=== PATIENT | female | born 1960 | race Caucasian/White ===

== ENCOUNTER 2020-07-22 11:04 | Day surgery (SDCO) | payer MEDICARE, OTHER ==
[2020-07-22 12:22] LABS: BASOPHIL 0.6 % (0-2); EOSINOPHIL 0.7 % (0-5); HCT 28.4 % (37.0-47.0); HGB 8.7 g/dl (12.5-16.0); LYMPHOCYTE 6.6 % (15-48); MCH 28.2 pg (25.0-31.0); MCHC 30.6 g/dL (32.0-36.0); MCV 92.2 fL (78.0-100.0); MONOCYTE 9.4 % (0-12); MPV 10.4 fL (6.0-9.5); NEUTROPHIL 82.5 % (41-80); NRBC 0; PLT 297 K/uL (150-400); RBC 3.08 M/uL (4.20-5.40); RDW 12.7 % (11.5-14.0); WBC 8.9 K/uL (4.0-10.5)
[2020-07-22 12:36] LABS: CORONAVIRUS 2019 SARS-COV-2 NEGATIVE (NEGATIVE); INFLUENZA A NAA NEGATIVE (NEGATIVE)
[2020-07-22 12:40] LABS: BILIRUBIN NEGATIVE (NEGATIVE); BLOOD NEGATIVE Ery/uL (NEGATIVE); CLARITY CLEAR (CLEAR); COLOR YELLOW (YELLOW); GLUCOSE (U) NORMAL (NORMAL); LEUKOCYTES NEGATIVE Leu/uL (NEGATIVE); NITRITE NEGATIVE (NEGATIVE); PROTEIN NEGATIVE (NEGATIVE); SPECIFIC GRAVITY 1.025 (1.001-1.030)
[2020-07-22 12:42] LABS: ALBUMIN 2.5 g/dL (3.4-5.0); BILIRUBIN - TOTAL 0.4 mg/dL (0.2-1.0); CREATININE 0.47 mg/dL (0.51-0.95); GLOBULIN (CALCULATION) 3.7 g/dL; TOTAL PROTEIN 6.2 g/dL (6.4-8.2)
[2020-07-22 12:47] LABS: LACTIC ACID 1.1 mmol/L (0.4-1.9)
[2020-07-22] MEDS ORDERED: HYDROCORTISONE30 G5 TOP (13:10)
[2020-07-22] MEDS ORDERED: DIASTAT2.5 MG PR (16:42)
[2020-07-22] MEDS ORDERED: LAMICTAL100 MG PO (16:42)
[2020-07-22] MEDS ORDERED: AMBIEN10 MG PO (16:43)
[2020-07-22] MEDS ORDERED: COLACE100 MG PO (16:44)
[2020-07-22] MEDS ORDERED: PRILOSEC20 MG PO (16:44)
[2020-07-22] MEDS ORDERED: VIMPAT150 MG PO (16:44)
[2020-07-22] MEDS ORDERED: MOBIC7.5 MG PO (16:45)
[2020-07-22] MEDS ORDERED: ATIVAN1 MG PO (16:45)
[2020-07-22] MEDS ORDERED: ONFI20 MG PO (16:45)
--- NOTE | 2020-07-23 09:33 | NUR ---
PT WILL KNOWN TO WOUND CARE. HAVE BEEN TREATING STAGE 3 TO LEFT HIP. SAW PT ON 07/21/20. NO S/S OF INFECTION. LAST WOUND CULTURE WAS NEGATIVE EXCEPT FOR NORMAL ULICES. PT ADMITTED WITH SYNCOPE. STAGE 3 TO LEFT HIP MEASURES 1 X 1.2 X 3 WITH TUNNELING AT 1 O'CLOCK 3 CM. UNDERMINING FROM 4-9 O'CLOCK AT 0.5 CM. RECOMMEND TO PACK LIGHTLY WITH AQUACEL AG AND COVER WITH FOAM DRESSING.
[2020-07-23] MEDS ORDERED: NIZORAL CREAM 330 GM TOP (09:44)
== END 2020-07-23 14:20 | disposition home or self-care (01) ==
LOC: FER 11:04 → FMS 15:03
PROVIDERS: Emergency Medicine; ADMIT Allergy & Immunology Allergy
DX: R55 Syncope and collapse (principal); I95.9 Hypotension, unspecified; B35.3 Tinea pedis; F79 Unspecified intellectual disabilities; G40.812 Lennox-Gastaut syndrome, not intractable, without status epilepticus; D64.9 Anemia, unspecified; J32.9 Chronic sinusitis, unspecified; Z79.1 Long term (current) use of non-steroidal anti-inflammatories (NSAID); Z79.899 Other long term (current) drug therapy; Z88.0 Allergy status to penicillin; Z88.1 Allergy status to other antibiotic agents; Z20.822 Contact with and (suspected) exposure to COVID-19
CPT/HCPCS: 36415; 70450; 71045; 80053; 81003; 82150; 83605; 84145; 84484; 85025; 87040; 87070; 87077; 87088; 87186; 87205; 93005; 97162; 97530-GP; G0378; J7030; J7120; U0002

== ENCOUNTER 2021-05-15 12:41 | Emergency (ER) | payer MEDICARE, OTHER ==
[~2021-05-15 12:41] MED LIST: AMBIEN10 MG PO; ATIVAN1 MG PO; COLACE100 MG PO; DIASTAT2.5 MG PR; HYDROCORTISONE30 G5 TOP; LAMICTAL100 MG PO; MOBIC7.5 MG PO; NIZORAL CREAM 330 GM TOP; ONFI20 MG PO; PRILOSEC20 MG PO; VIMPAT150 MG PO
[2021-05-15] MEDS ORDERED: ACETAMINOPHEN500 M1 PO (15:22)
== END 2021-05-15 15:37 | disposition home or self-care (01) ==
LOC: FER 12:41
DX: S42.032A Displaced fracture of lateral end of left clavicle, initial encounter for closed fracture (principal); Z88.0 Allergy status to penicillin; Z88.2 Allergy status to sulfonamides; Z88.1 Allergy status to other antibiotic agents; Y92.210 Daycare center as the place of occurrence of the external cause
CPT/HCPCS: 73030